=== PATIENT | female | born 1965 | race Caucasian/White ===

== ENCOUNTER → 2016-09-24 | Outpatient (CLI) | payer OTHER ==
--- NOTE | 2016-09-25 15:26 | CT ---
CT Chest Unenhanced History: Nonsmoker, with no cancer history, follow up 5 mm left lower lobe nodule seen on a calcium scoring study. Comparison: Calcium scoring study from [facility] July 03, 2012 and June 16, 2015. Technique: Axial unenhanced images were obtained through the chest. Coronal MIPs were performed. D ose reduction techniques were utilized. Findings: There is a 3 mm left lower lobe nodule (series #4, image #143) that may be partially calci fied and is unchanged since 2011. There is a stable 3 mm noncalcified subpleural right lower lobe no dule (series #4, image #134). No new pulmonary nodules are identified. A right upper lobe granuloma is noted. There is mild basilar atelectasis/scarring. There are trace pleural effusions. The hear t size is normal. The aorta is normal caliber. No pathologically enlarged lymph nodes are identifie d. Thyroid nodules measure up to 1.2 cm in the left lobe of the thyroid. T6 hemangioma is noted. M ild degenerative change is present in the spine. Impression: 1. Stable small benign pulmonary nodules for which no further follow up is recommended per [employer] guidelines in a nonsmoker with no cancer history. 2. Thyroid nodules measuring up to 1.2 cm. The patient has reportedly had previous thyroid ultrasoun ds. Correlation with outside imaging is recommended. 3. Trace pleural effusions. 4. Additional findings, as above. Findings discussed with Rossy in Grace Mccarty's office on September 25, 2016 1453 hours.
== END ==
LOC: FIMAGING 15:51
PROVIDERS: ATTEND Internal Medicine
DX: R91.1 Solitary pulmonary nodule (principal); E04.2 Nontoxic multinodular goiter; J90 Pleural effusion, not elsewhere classified

== ENCOUNTER → 2016-10-01 | Outpatient (CLI) | payer OTHER ==
--- NOTE | 2016-10-01 13:07 | MA ---
Screening Digital Mammogram With iCAD Analysis Clinical Indications: Routine screening. Technique: Standard cephalocaudal projections are obtained. Digital breast tomosynthesis was performe d in the MLO projection with reconstruction at 1.0 mm slice thickness and composite MLO views reconst ructed. This examination is processed by the iCAD computer aided detection system. Comparison: September 2015, October 2013, June 2012, April 2011, April 2010, October 2008. Breast density: Type B; Scattered fibroglandular densities. Findings: CAD was reviewed. No masses, suspicious calcifications or secondary signs of malignancy are seen. There has been no significant change in the appearance of either breast. Impression: Negative mammogram. BI-RADS 1. Recommendation: Routine mammographic screening in one year. [facility] will send a result letter to the patient. Negative mammography should not preclude additional workup of a clinically suspicious finding. The patient's information is entered into a reminder system with a target due date for her next mammo gram.
== END ==
LOC: FIMAGING 11:50
DX: Z12.31 Encounter for screening mammogram for malignant neoplasm of breast (principal)

== ENCOUNTER → 2017-11-06 | Outpatient (CLI) | payer OTHER | LOC: FIMAGING 14:28 | PROVIDERS: ATTEND Internal Medicine | DX: Z12.31 Encounter for screening mammogram for malignant neoplasm of breast (principal) ==

== ENCOUNTER → 2019-01-01 | Outpatient (CLI) | payer OTHER | LOC: FIMAGING 13:50 | PROVIDERS: ATTEND Internal Medicine | DX: Z12.31 Encounter for screening mammogram for malignant neoplasm of breast (principal) ==